=== PATIENT | female | born 1985 | race Caucasian/White ===

== ENCOUNTER 2022-04-10 11:17 | Outpatient (CLI) | payer BC, SELFPAY ==
[2022-04-10 21:54] LABS: Chloride* 100 mmol/L (96-114); Potassium* 4.4 mmol/L (3.6-5.1); Sodium* 137 mmol/L (135-149)
[2022-04-10 21:57] LABS: Blood Urea Nitrogen* 10 mg/dL (5-24); Carbon Dioxide* 27 mmol/L (20-32); Cholesterol* 194 mg/dL (90-199); Creatinine* 0.7 mg/dL (0.5-1.5); Estimated Glomerular Filt Rate 113 ml/min
[2022-04-10 21:58] LABS: Calcium* 9.3 mg/dL (8.4-10.6); Glucose* 101 mg/dL (60-115); HDL Cholesterol* 91 mg/dL (>=50); LDL Cholesterol Calculated 64 mg/dL (<100); Triglycerides* 193 mg/dL (40-149)
== END 2022-04-10 11:18 | disposition home or self-care (01) ==
LOC: LKVREF 11:18
PROVIDERS: PCP Family Medicine; Visit Provider Family Medicine
DX: Z01.419 Encounter for gynecological examination (general) (routine) without abnormal findings (principal); F41.8 Other specified anxiety disorders; Z13.6 Encounter for screening for cardiovascular disorders; Z13.29 Encounter for screening for other suspected endocrine disorder
CPT/HCPCS: 80048; 80061; 84443

== ENCOUNTER 2023-09-30 15:53 | Outpatient (CLI) | payer OTHER, SELFPAY | END 2023-09-30 15:54 | disposition home or self-care (01) | PROVIDERS: PCP Family Medicine; Visit Provider Family Medicine | DX: M54.2 Cervicalgia (principal); M79.2 Neuralgia and neuritis, unspecified | CPT/HCPCS: 80053; 80061; 84443; 86140 ==

== ENCOUNTER 2023-10-11 17:25 | Outpatient (CLI) | payer OTHER, SELFPAY ==
--- NOTE | 2023-10-11 17:30 | MR_ITS ---
Patient: ONEIL CARRIZOZO Facility:?[facility] Patient ID:?[id number] Site Patient ID:?[id number]. Site :?[id number] Study:?MRI-Spine Cervical WO-10/11/2023 6:05:35 PM Ordering Physician:FRANCISCO Final Report: Indication: Neck pain. Left arm radiation. Technique: T2, T1 and STIR sagittal as well as gradient echo axial sequences were obtained. No IV contrast. Comparison: None available. Findings: Reversal of the normal cervical lordosis. No fracture or worrisome bone lesion identified. The posterior disc margins mildly indent the ventral surface of the cord from C3-4 through C6-7, but there is now high grade central canal stenosis. No spinal cord signal abnormalities are identified. No gross paraspinal pathology is identified. Craniocervical junction and C1-C2: Unremarkable, with a patent foramen magnum. C2-3: Minor disc and facet degenerative changes. The foramina are patent. C3-4: Moderately severe disc degeneration. Broad posterior disc bulging slightly indents the ventral surface of the cord. Moderate right and moderately severe left foraminal narrowing. C4-5: Interspace obliteration. Asymmetric left posterolateral interbody and uncinate hypertrophy cause flattening of the left anterolateral cord and radha impingement on the left C5 nerve root. Mild right and moderately severe left foraminal narrowing. C5-6: Interspace obliteration with diffuse interbody spurring. Slight flattening of the ventral surface of the cord. Mild left and moderate right foraminal narrowing. C6-7: Moderate shallow left central and subarticular extrusion, superimposed on diffuse interbody spurring.. Impingement on the left C7 nerve root. Mild foraminal narrowing. C7-T1: Moderate facet osteoarthritis. Minor disc degeneration. The foramina are patent. Impression: 1. At C6-7 there is a moderate-sized left central and subarticular extrusion with underlying interbody spurring, impinging on the left C7 nerve root. 2. At C4-5 there is asymmetric left posterolateral interbody spurring, with impingement on the left C5 nerve root. 3. The posterior disc margins mildly indent the ventral surface of the cord at many levels, but no abnormal spinal cord signal change is identified. 4. Multilevel foraminal narrowing, high-grade at C3-4 and C4-5 on the left. 5. Mild reversal of the normal cervical lordosis. Dictated by Castro Melo MD @ 10/12/2023 7:14:51 AM Signed by:?Castro Melo MD @10/12/2023 7:14:51 AM (Electronic Signature)
== END 2023-10-11 17:26 | disposition home or self-care (01) ==
PROVIDERS: PCP Family Medicine; Visit Provider Family Medicine
DX: M54.2 Cervicalgia (principal); M50.21 Other cervical disc displacement, high cervical region; M50.221 Other cervical disc displacement at C4-C5 level
CPT/HCPCS: 72141

== ENCOUNTER 2024-10-09 13:55 | Outpatient (CLI) | payer OTHER, SELFPAY | END 2024-10-09 13:56 | disposition home or self-care (01) | LOC: LKVREF 13:58 | PROVIDERS: PCP Family Medicine; Visit Provider Family Medicine | DX: Z13.6 Encounter for screening for cardiovascular disorders (principal); R10.9 Unspecified abdominal pain | CPT/HCPCS: 80053; 80061; 80076 ==

== ENCOUNTER 2024-12-13 09:00 | Outpatient (RCR) | payer OTHER, SELFPAY | END 2025-04-12 23:59 | disposition home or self-care (01) | PROVIDERS: PCP Family Medicine; Visit Provider Emergency Medicine | DX: R42 Dizziness and giddiness (principal); Z51.89 Encounter for other specified aftercare | CPT/HCPCS: 97110; 97162 ==